=== PATIENT | female | born 1960 | race Hispanic/Latino ===

== ENCOUNTER → 2022-06-14 | Outpatient (CLI) | payer OTHER ==
[~2022-06-14] MED LIST: DORZ10DR9 OU; LATA2.5D14 OU; OCALIVA PO; URSO250T3 PO
== END | disposition home or self-care (01) ==
LOC: SHCH 13:06
PROVIDERS: ATTEND Internal Medicine Cardiovascular Disease
DX: I35.8 Other nonrheumatic aortic valve disorders (principal); I87.2 Venous insufficiency (chronic) (peripheral); I70.293 Other atherosclerosis of native arteries of extremities, bilateral legs
CPT/HCPCS: 93306; 93925; 93970

== ENCOUNTER 2023-04-01 06:24 | Day surgery (SDC) | payer OTHER ==
[2023-03-31 12:32] VITALS: BP 130/79; PULSE 81; RESP 16
[2023-03-31 12:39] LABS: BASOPHILS # (AUTO) 0.03 K/uL (0.00-0.20); BASOPHILS % (AUTO) 0.4 % (0.0-5.0); EOSINOPHILS # (AUTO) 0.27 K/uL (0.00-0.70); EOSINOPHILS % (AUTO) 3.7 % (0.0-8.0); HEMATOCRIT 40.2 % (36-48); IMMATURE GRANULOCYTE ABSOLUTE 0.01 K/uL (0-1); LYMPHOCYTES # (AUTO) 1.9 K/uL (1.0-4.8); LYMPHOCYTES % (AUTO) 26.3 % (21.0-51.0); MEAN CORPUSCULAR HEMOGLOBIN 26.8 pg (27.0-33.0); MEAN CORPUSCULAR HGB CONC 31.8 g/dL (32.0-36.0); MEAN CORPUSCULAR VOLUME 84.3 fL (79-99); MONOCYTES # (AUTO) 0.7 K/uL (0.1-1.0); MONOCYTES % (AUTO) 9.1 % (3.0-13.0); NEUTROPHILS # (AUTO) 4.5 K/uL (1.8-7.7); NEUTROPHILS % (AUTO) 60.4 % (40.0-77.0); PLATELET COUNT (AUTO) 212 K/uL (130-400); RED BLOOD CELL COUNT(AUTO) 4.77 MIL/uL (4.00-5.50); RED CELL DISTRIBUTION WIDTH 14.2 % (11.0-15.5); WHITE BLOOD COUNT (AUTO) 7.4 K/uL (4.8-10.8)
[2023-03-31 12:47] LABS: CREATININE 0.6 mg/dL (0.5-1.5); POTASSIUM 4.4 mmol/L (3.5-5.1)
[2023-03-31 12:50] LABS: INR 0.94 (0.85-1.15)
[2023-03-31 12:51] LABS: PARTIAL THROMBOPLASTIN TIME 27.2 SEC (26.3-35.5)
[2023-04-01] VITALS (20 sets, daily range): BP systolic 109–160; BP diastolic 51–102; PULSE 69–126; RESP 9–21
[~2023-04-01] VITALS: Ht 152.4 cm; Wt 59.4 kg
[~2023-04-01 06:24] MED LIST changes: +APIX5TAB PO; +BRIM15OS OU; +CLOP75TA32 PO; +DORZ10DR19 OU; -DORZ10DR9 OU; +ERGO500093 PO; +FAMO40TA7 PO; +FERR-72 PO; +FURO20TA4 PO; -LATA2.5D14 OU; +LORA10TA7 PO; +METO-391 PO; +NORT10CA2 PO; -OCALIVA PO; +OMEP40CA21 PO; -URSO250T3 PO; +URSO300C4 PO; +XALA2.5OS OU
[2023-04-01] MEDS ORDERED: 0.9%NACL 1000ML 1,000 ML IV ONE (06:55)
[2023-04-01] MEDS ORDERED: LIDOCAINE HCL 2% VISCOUS 15 ML UDCUP ONE (07:43)
[2023-04-01] MEDS ORDERED: FENTANYL CITRATE PF 50 MCG/1 ML 2ML VIAL ONE (07:44)
[2023-04-01] MEDS ORDERED: MIDAZOLAM HCL 1 MG/ML 2ML VIAL ONE (07:44)
[2023-04-01] MEDS ORDERED: NALOXONE HCL 0.4 MG/1 ML ML ONE (07:45)
[2023-04-01] MEDS ORDERED: FLUMAZENIL 0.1MG/1ML 5ML VIAL IV ONE (07:45)
[2023-04-01] MEDS ORDERED: ADENOSINE 6MG VIAL IV SCH (08:30)
== END 2023-04-01 09:40 | disposition home or self-care (01) ==
LOC: DAH 06:24 → EDSTATUS 08:00 → DAH 09:40
PROVIDERS: ATTEND Internal Medicine Cardiovascular Disease
DX: I48.3 Typical atrial flutter (principal); I08.3 Combined rheumatic disorders of mitral, aortic and tricuspid valves; I44.1 Atrioventricular block, second degree; I49.3 Ventricular premature depolarization; I10 Essential (primary) hypertension; K21.9 Gastro-esophageal reflux disease without esophagitis; I87.1 Compression of vein; K74.69 Other cirrhosis of liver; I25.2 Old myocardial infarction; Z79.1 Long term (current) use of non-steroidal anti-inflammatories (NSAID); Z79.01 Long term (current) use of anticoagulants; Z79.899 Other long term (current) drug therapy; Z98.890 Other specified postprocedural states; Z87.891 Personal history of nicotine dependence
CPT/HCPCS: 80048; 85025; 85610; 85730; 36415; 92960; 93312; 93005 ×2; 93325; J0153; J3010; J7030; J2250; A4615; A4215; A4657; A4222; A4221; A4663; A4216; A4606; A4223 ×3; 99152; J2310; J3490; G0500

== ENCOUNTER 2023-04-02 18:40 | Observation (INO) | payer OTHER ==
[~2023-04-02] VITALS: Ht 152.4 cm; Wt 63.9 kg
[2023-04-02 19:46] LABS: BASOPHILS # (AUTO) 0.03 K/uL (0.00-0.20); BASOPHILS % (AUTO) 0.2 % (0.0-5.0); EOSINOPHILS # (AUTO) 0.03 K/uL (0.00-0.70); EOSINOPHILS % (AUTO) 0.2 % (0.0-8.0); HEMATOCRIT 33.3 % (36-48); IMMATURE GRANULOCYTE ABSOLUTE 0.07 K/uL (0-1); LYMPHOCYTES # (AUTO) 1.7 K/uL (1.0-4.8); LYMPHOCYTES % (AUTO) 11.4 % (21.0-51.0); MEAN CORPUSCULAR HEMOGLOBIN 27.5 pg (27.0-33.0); MEAN CORPUSCULAR VOLUME 83.3 fL (79-99); MONOCYTES # (AUTO) 1.6 K/uL (0.1-1.0); MONOCYTES % (AUTO) 10.9 % (3.0-13.0); NEUTROPHILS # (AUTO) 11.3 K/uL (1.8-7.7); NEUTROPHILS % (AUTO) 76.8 % (40.0-77.0); PLATELET COUNT (AUTO) 184 K/uL (130-400); RED CELL DISTRIBUTION WIDTH 14.2 % (11.0-15.5); WHITE BLOOD COUNT (AUTO) 14.7 K/uL (4.8-10.8)
[2023-04-02 19:55] LABS: CREATININE 0.8 mg/dL (0.5-1.5); POTASSIUM 4.1 mmol/L (3.5-5.1)
[2023-04-02 20:06] LABS: BILIRUBIN,TOTAL 1.9 mg/dL (0.2-1.0); TOTAL PROTEIN, SERUM 8.4 g/dL (6.0-8.3)
[2023-04-02] MEDS ORDERED: ACETAMINOPHEN 325 MG TAB PO ONE (22:00)
[2023-04-02 22:03] LABS: APPEARANCE,URINE CLEAR (CLEAR); BILIRUBIN,URINE SMALL mg/dL (NEGATIVE); COLOR,URINE YELLOW (YELLOW); GLUCOSE, URINE (UA) NEGATIVE (NEGATIVE); KETONES,URINE 15 mg/dL (NEGATIVE); LEUKOCYTE ESTERASE ,URINE NEGATIVE Leu/uL (NEGATIVE); NITRATE,URINE NEGATIVE (NEGATIVE); OCCULT BLOOD,URINE MODERATE (NEGATIVE); PROTEIN,URINE 30 mg/dL (NEGATIVE); UROBILINOGEN,URINE >=8.0 mg/dL (0.2-1.0)
[2023-04-02 22:05] LABS: ADD UA MICROSCOPIC YES
[2023-04-02 22:10] LABS: BACTERIA,URINE MOD /HPF (None Seen); MUCUS,URINE RARE LPF (None Seen); SQUAMOUS EPITHELIAL CELL,UR RARE /HPF (0-2)
[2023-04-02 22:14] LABS: SARS-CoV-2, RNA, NAAT NEGATIVE SARS CoV-2 (NEGATIVE)
[2023-04-02 22:19] LABS: INFLUENZA TYPE A Negative For Type A (NEGATIVE); INFLUENZA TYPE B Negative For Type B (NEGATIVE)
[2023-04-02] MEDS ORDERED: ZOSYN 3.375GM+NS 50ML 50 ML IVPB STA (22:55)
[2023-04-02] MEDS ORDERED: 0.9%NACL 1000ML 2,000 ML IV ONE (23:00)
[2023-04-02] MEDS ORDERED: VANCOMYCIN 1G/250ML KIT 250 ML IV ONE (23:00)
[2023-04-02] MEDS ORDERED: ONDANSETRON 4MG INJ IVP PRN (23:30)
[2023-04-02] MEDS ORDERED: ACETAMINOPHEN 325 MG TAB PO PRN (23:30)
[2023-04-02] MEDS ORDERED: CEFTRIAXONE 2GM VIAL IVPB ONE (23:30)
[2023-04-03] MEDS: 0.9%NACL 1000ML 1,000 ML IV SCH ×3 (00:32→16:39)
[2023-04-03] MEDS ORDERED: FAMO20TA8 PO (02:32)
[2023-04-03] MEDS ORDERED: METO-391 PO (02:32)
[2023-04-03] MEDS ORDERED: ERGO500093 PO (02:32)
[2023-04-03] MEDS ORDERED: CLOP75TA32 PO (02:32)
[2023-04-03] MEDS ORDERED: LORA10TA7 PO (02:32)
[2023-04-03] MEDS ORDERED: OMEP40CA21 PO (02:32)
[2023-04-03] MEDS ORDERED: NORT10CA2 PO (02:32)
[2023-04-03] MEDS ORDERED: APIX5TAB PO (02:32)
[2023-04-03] MEDS ORDERED: URSO300C4 PO (02:32)
[2023-04-03 07:18] LABS: BASOPHILS # (AUTO) 0.03 K/uL (0.00-0.20); BASOPHILS % (AUTO) 0.4 % (0.0-5.0); EOSINOPHILS % (AUTO) 1.3 % (0.0-8.0); HEMATOCRIT 27.1 % (36-48); IMMATURE GRANULOCYTE ABSOLUTE 0.04 K/uL (0-1); LYMPHOCYTES # (AUTO) 1.5 K/uL (1.0-4.8); LYMPHOCYTES % (AUTO) 19.6 % (21.0-51.0); MEAN CORPUSCULAR HEMOGLOBIN 27.1 pg (27.0-33.0); MEAN CORPUSCULAR HGB CONC 31.4 g/dL (32.0-36.0); MEAN CORPUSCULAR VOLUME 86.3 fL (79-99); MONOCYTES % (AUTO) 12.7 % (3.0-13.0); NEUTROPHILS # (AUTO) 5.2 K/uL (1.8-7.7); NEUTROPHILS % (AUTO) 65.5 % (40.0-77.0); PLATELET COUNT (AUTO) 114 K/uL (130-400); RED BLOOD CELL COUNT(AUTO) 3.14 MIL/uL (4.00-5.50); RED CELL DISTRIBUTION WIDTH 14.4 % (11.0-15.5); WHITE BLOOD COUNT (AUTO) 7.9 K/uL (4.8-10.8)
[2023-04-03 07:27] LABS: CREATININE 0.6 mg/dL (0.5-1.5); POTASSIUM 3.1 mmol/L (3.5-5.1)
[2023-04-03] MEDS ORDERED: LACTULOSE 20 GM/30 ML UDCUP PO PRN (09:00)
[2023-04-03] MEDS ORDERED: MAG/ALUM/SIMETH 30 ML UDCUP PO PRN (09:00)
[2023-04-03] MEDS ORDERED: NON-FORMULARY MEDICATION 1 EACH (Omeprazole 40 MG) PO SCH (09:00)
[2023-04-03] MEDS ORDERED: POTASSIUM CHLORIDE 20MEQ/100ML 100 ML IV PRN (09:00)
[2023-04-03] MEDS ORDERED: POTASSIUM CHLORIDE 10% ELIXIR 20 MEQ/15 ML UDCUP PO PRN (09:00)
[2023-04-03] MEDS ORDERED: MAGNESIUM 2GM PREMIX 50ML 50 ML IV PRN (09:00)
[2023-04-03] MEDS ORDERED: METOPROLOL TARTRATE 25 MG TAB PO PRN (10:00)
[2023-04-03] MEDS: APIXABAN 5 MG TABLET PO SCH ×2 (10:28→20:21)
[2023-04-03] MEDS: METOPROLOL SUCCINATE 50 MG TAB.SR.24H PO SCH (10:28)
[2023-04-03] MEDS: PANTOPRAZOLE 40 MG TAB DR PO SCH (10:29)
[2023-04-03] MEDS: CLOPIDOGREL 75MG TAB PO SCH (10:29)
[2023-04-03] MEDS: KCL 20 MEQ ERTAB PO PRN ×3 (10:29→14:41)
[2023-04-03 14:55] VITALS: BP 140/73; PULSE 65; RESP 20
[2023-04-03] MEDS ORDERED: CEPH500C2 PO (16:14)
[2023-04-03] MEDS ORDERED: POTA-200 PO (16:34)
[2023-04-03] MEDS: URSODIOL 300 MG CAPSULE PO SCH ×2 (16:56→20:20)
[2023-04-03 17:14] VITALS: TEMP 100.4
[2023-04-03 20:00] VITALS: BP 141/71; PULSE 97; RESP 16; O2SAT 93
[2023-04-03] MEDS ORDERED: FAMOTIDINE 20MG TAB PO SCH ×2 (21:00)
[2023-04-03] MEDS ORDERED: NORTRIPTYLINE HCL 10 MG PO SCH (21:00)
[2023-04-03] MEDS ORDERED: CEFTRIAXONE 2GM VIAL IVPB ONE (23:30)
[2023-04-04 00:05] VITALS: BP 121/63; PULSE 99; RESP 18
[2023-04-04 04:43] LABS: HEMATOCRIT 29.7 % (36-48); MEAN CORPUSCULAR HEMOGLOBIN 26.6 pg (27.0-33.0); MEAN CORPUSCULAR HGB CONC 31.6 g/dL (32.0-36.0); MEAN CORPUSCULAR VOLUME 84.1 fL (79-99); RED BLOOD CELL COUNT(AUTO) 3.53 MIL/uL (4.00-5.50); RED CELL DISTRIBUTION WIDTH 14.4 % (11.0-15.5); WHITE BLOOD COUNT (AUTO) 6.7 K/uL (4.8-10.8)
[2023-04-04 04:49] VITALS: BP 142/72; PULSE 97; RESP 18
[2023-04-04] MEDS: 0.9%NACL 1000ML 1,000 ML IV SCH ×2 (05:38→09:42)
[2023-04-04 07:35] VITALS: BP 147/78; PULSE 98; RESP 19
[2023-04-04 08:00] VITALS: O2SAT 97
[2023-04-04] MEDS: CEPHALEXIN 500 MG CAPSULE PO SCH ×2 (08:47→13:25)
[2023-04-04] MEDS: CLOPIDOGREL 75MG TAB PO SCH (08:47)
[2023-04-04] MEDS: URSODIOL 300 MG CAPSULE PO SCH ×2 (08:48→13:25)
[2023-04-04] MEDS: APIXABAN 5 MG TABLET PO SCH (08:48)
[2023-04-04] MEDS: PANTOPRAZOLE 40 MG TAB DR PO SCH (08:48)
[2023-04-04] MEDS: METOPROLOL SUCCINATE 50 MG TAB.SR.24H PO SCH (08:48)
[2023-04-04 11:50] VITALS: BP 136/66; PULSE 85; RESP 19
== END 2023-04-04 13:45 | disposition home or self-care (01) ==
LOC: EDH 18:40 → EDHIP 23:15 → 4DH 04-03 14:59
PROVIDERS: ADMIT Internal Medicine; ATTEND Internal Medicine
DX: D72.829 Elevated white blood cell count, unspecified (principal); Z20.822 Contact with and (suspected) exposure to COVID-19; K74.3 Primary biliary cirrhosis; K21.9 Gastro-esophageal reflux disease without esophagitis; I10 Essential (primary) hypertension; J98.11 Atelectasis; K31.84 Gastroparesis; E87.6 Hypokalemia; I49.3 Ventricular premature depolarization; I47.1 Supraventricular tachycardia; I48.92 Unspecified atrial flutter; R00.2 Palpitations; M51.86 Other intervertebral disc disorders, lumbar region; R09.1 Pleurisy; I25.10 Atherosclerotic heart disease of native coronary artery without angina pectoris; H40.9 Unspecified glaucoma; J30.9 Allergic rhinitis, unspecified; K02.9 Dental caries, unspecified; M81.0 Age-related osteoporosis without current pathological fracture; Z79.899 Other long term (current) drug therapy; Z95.5 Presence of coronary angioplasty implant and graft; Z79.01 Long term (current) use of anticoagulants; Z79.02 Long term (current) use of antithrombotics/antiplatelets
CPT/HCPCS: 96365; 99285; 82550 ×2; 84484 ×2; 80053; 85025 ×2; 87040 ×2; 87088; 87804 ×2; 83605; 81001; 36415 ×3; 87635; 71045; 93005; 96366; 96367 ×2; 96368; 83735; 84132; 80048; 96361; 85027; G0378 ×39; C9803; J0696 ×3; J2543; J3370; J3475; J7030

== ENCOUNTER 2023-05-26 08:42 | Day surgery (SDC) | payer OTHER ==
[2023-05-22 11:25] VITALS: BP 116/51; PULSE 66; RESP 18
[2023-05-22 12:03] LABS: BASOPHILS # (AUTO) 0.03 K/uL (0.00-0.20); BASOPHILS % (AUTO) 0.5 % (0.0-5.0); EOSINOPHILS # (AUTO) 0.18 K/uL (0.00-0.70); EOSINOPHILS % (AUTO) 3.2 % (0.0-8.0); HEMATOCRIT 33.9 % (36-48); IMMATURE GRANULOCYTE ABSOLUTE 0.01 K/uL (0-1); LYMPHOCYTES # (AUTO) 1.7 K/uL (1.0-4.8); LYMPHOCYTES % (AUTO) 31.2 % (21.0-51.0); MEAN CORPUSCULAR HEMOGLOBIN 27.1 pg (27.0-33.0); MEAN CORPUSCULAR VOLUME 87.4 fL (79-99); MONOCYTES # (AUTO) 0.7 K/uL (0.1-1.0); MONOCYTES % (AUTO) 11.6 % (3.0-13.0); NEUTROPHILS % (AUTO) 53.3 % (40.0-77.0); PLATELET COUNT (AUTO) 228 K/uL (130-400); RED BLOOD CELL COUNT(AUTO) 3.88 MIL/uL (4.00-5.50); RED CELL DISTRIBUTION WIDTH 14.4 % (11.0-15.5); WHITE BLOOD COUNT (AUTO) 5.6 K/uL (4.8-10.8)
[2023-05-22 12:14] LABS: INR 0.99 (0.85-1.15); PROTHROMBIN TIME 11.5 SEC (9.6-11.6)
[2023-05-22 12:15] LABS: CREATININE 0.7 mg/dL (0.5-1.5)
[2023-05-22 12:16] LABS: PARTIAL THROMBOPLASTIN TIME 30.8 SEC (26.3-35.5)
[~2023-05-26] VITALS: Ht 152.4 cm; Wt 60.4 kg
[2023-05-26] VITALS (9 sets, daily range): BP systolic 123–151; BP diastolic 58–69; PULSE 56–78; RESP 14–18
[~2023-05-26 08:42] MED LIST changes: +CYAN250010 PO; +MULT-1250 PO; -NORT10CA2 PO; +POTA-200 PO
[2023-05-26] MEDS ORDERED: 0.9%NACL 1000ML 1,000 ML IV ONE (09:56)
[2023-05-26] MEDS ORDERED: HEPARIN 10,000 UNIT/10ML (1,000 UNIT/ML) VIAL ONE (12:28)
[2023-05-26] MEDS ORDERED: LIDOCAINE HCL 1% MDV 50ML VIAL ONE (12:44)
[2023-05-26] MEDS ORDERED: MEPERIDINE-PF 25 MG/ML SYG ONE ×2 (13:03→13:49)
[2023-05-26] MEDS ORDERED: MIDAZOLAM HCL 1 MG/ML 2ML VIAL ONE ×2 (13:03→13:49)
[2023-05-26] MEDS ORDERED: ACETAMINOPHEN 325 MG TAB PO PRN (14:30)
== END 2023-05-26 18:10 | disposition home or self-care (01) ==
LOC: DAH 08:42
PROVIDERS: ATTEND Internal Medicine Cardiovascular Disease
DX: I48.3 Typical atrial flutter (principal); I08.1 Rheumatic disorders of both mitral and tricuspid valves; I25.2 Old myocardial infarction; K21.9 Gastro-esophageal reflux disease without esophagitis; Z83.3 Family history of diabetes mellitus; Z82.49 Family history of ischemic heart disease and other diseases of the circulatory system; Z87.891 Personal history of nicotine dependence; Z98.890 Other specified postprocedural states
CPT/HCPCS: 93653 ×2; 80048; 85025; 85610; 85730; 36415; 93005; A4223 ×3; C1894 ×2; C1732 ×2; A4649 ×2; J7030; J1644 ×2; J2250 ×2; J2175 ×2; J3490; A4215; A4222; A4221; A4663; A4216; A4606; 99156; 99157

== ENCOUNTER → 2024-04-07 | Outpatient (CLI) | payer OTHER | END | disposition home or self-care (01) | LOC: RAH 08:31 | PROVIDERS: ATTEND Internal Medicine Gastroenterology | DX: K74.3 Primary biliary cirrhosis (principal) | CPT/HCPCS: 76700 ==

== ENCOUNTER → 2024-05-05 | Outpatient (CLI) | payer OTHER | END | disposition home or self-care (01) | LOC: SHCH 14:33 | PROVIDERS: ATTEND Internal Medicine Cardiovascular Disease | DX: I87.2 Venous insufficiency (chronic) (peripheral) (principal); I87.1 Compression of vein | CPT/HCPCS: 93970 ==

== ENCOUNTER → 2024-09-21 | Outpatient (CLI) | payer OTHER | END | disposition home or self-care (01) | LOC: RESP 14:45 | PROVIDERS: ATTEND Internal Medicine | DX: R06.02 Shortness of breath (principal); F17.210 Nicotine dependence, cigarettes, uncomplicated | CPT/HCPCS: 94060; 94729 ==

== ENCOUNTER → 2024-10-01 | Outpatient (CLI) | payer OTHER | END | disposition home or self-care (01) | LOC: SHCH 08:05 | PROVIDERS: ATTEND Internal Medicine Cardiovascular Disease | DX: I25.10 Atherosclerotic heart disease of native coronary artery without angina pectoris (principal); R06.09 Other forms of dyspnea | CPT/HCPCS: 93306 ==

== ENCOUNTER → 2024-11-11 | Outpatient (CLI) | payer OTHER ==
--- NOTE | 2024-11-11 16:44 | HMCIMG ---
ANKLE COMP 3VWS RT HISTORY: Pain COMPARISON: None TECHNIQUE: 3 images of the right ankle were obtained. FINDINGS: Soft tissue swelling seen. No acute displaced fracture is seen. Tiny calcaneal spur is seen. Degenerative changes are seen. IMPRESSION: 1. Findings as described above.
== END | disposition home or self-care (01) ==
LOC: RAH 15:36
PROVIDERS: ATTEND Internal Medicine
DX: M19.071 Primary osteoarthritis, right ankle and foot (principal); M77.31 Calcaneal spur, right foot; M25.571 Pain in right ankle and joints of right foot
CPT/HCPCS: 73610

== ENCOUNTER → 2025-01-09 | Outpatient (CLI) | payer OTHER ==
[~2025-01-09] MED LIST changes: +IOHEXOL 350 MG/ML 100ML INFUS..BTL IV ONE; +NITROGLYCERIN 4.9GM SPRAY 60 SPRAY/BOT SPRY TL ONE
--- NOTE | 2025-01-09 16:00 | HMCIMG ---
CT CARDIAC ANGIO W/CONT. CCTA REASON: UNSTABLE ANGINA COMPARISON: None TECHNIQUE: Images are obtained through the heart in the axial plane before and during bolus IV contrast infusion, 100 cc Omnipaque 350. 2-D and 3-D multiplanar reconstruction images were then performed. The injection had to be repeated once due to motion artifact on the first sequence, total contrast volume was 200 cc. FINDINGS: This dictation is for the noncardiac findings only. Cardiac and coronary artery findings are reported separately. Visualized portions of the lungs are clear. There is normal-appearing pulmonary interstitium. There is no hilar or mediastinal lymphadenopathy. Chest wall structures appear unremarkable. The esophagus is distended at 3.8 cm, and fluid-filled. There is no visible distal esophageal mass. Findings are most consistent with reflux. IMPRESSION: 1. Mid and distal esophagus fluid-filled and distended to 3.8 cm, and no focal mass identified, probable reflux. 2. Otherwise unremarkable exam.
== END | disposition home or self-care (01) ==
LOC: RAH 07:31
PROVIDERS: ATTEND Internal Medicine Cardiovascular Disease
DX: K22.89 Other specified disease of esophagus (principal); I20.0 Unstable angina; R06.09 Other forms of dyspnea
CPT/HCPCS: 75574; Q9967